=== PATIENT | male | born 1980 | race Caucasian/White ===

== ENCOUNTER 2023-04-20 06:27 | Day surgery (SDC) | payer BC ==
[~2023-04-20] VITALS: Ht 170.2 cm; Wt 101.8 kg
[~2023-04-20 06:27] MED LIST: CEPH500 PO; ERYT.5TO OS; GATI5OPSO OD; HYDACE5 PO; IBUP600 PO; IBUP800 PO; Keflex500 MG PO; NAPR550 PO; Percocet 5-3251 EACH PO; RXHYDACE PO; RXNAPNA550 PO; SULTRIDS PO
--- NOTE | 2023-04-20 07:41 | NUR ---
04/20/23 0741 Edelmira Ruiz COMPLETE IN OR BY DR. CLIFFORD, SITE CHECK DONE, VSS.
[2023-04-20 08:12] VITALS: BP 123/89
--- NOTE | 2023-04-20 08:22 | NUR ---
04/20/23 0822 RAUDEL SANCHEZ AT BEDSIDE. PT EATING AND DRINKING W/O DIFF
== END 2023-04-20 08:39 | disposition home or self-care (01) ==
LOC: ORSCSDS 06:27
PROVIDERS: Orthopaedic Surgery
PROC: 01N50ZZ Release Median Nerve, Open Approach (ICD-10-PCS; principal; 2023-04-20 07:30)
DX: G56.03 Carpal tunnel syndrome, bilateral upper limbs (principal); E66.9 Obesity, unspecified; Z68.35 Body mass index [BMI] 35.0-35.9, adult; Z87.891 Personal history of nicotine dependence
CPT/HCPCS: J0690; J2250; J3010; J7120